=== PATIENT | male | born 1955 | race Caucasian/White ===

== ENCOUNTER 2016-10-14 15:32 | Emergency (ER) | payer SELFPAY ==
--- NOTE | ~2016-10-14 | CR72 ---
[facility] A Service of [facility] & [facility] RADIOLOGY TEXT RESULTS PATIENT: SELWYN BATEMAN JR LOCATION: [facility] : 53 UNIT #: [id number] AGE: [address]: Haim Tobin MD SEX: M ORDER DR: [id number] [facility] [address] [place], [place] [address] [id number] P MR#: [id number] Acc #: [id number] NAME: SELWYN BATEMAN : 1955 SEX: M STUDY DATE/TIME: 10/14/2016 16:11 UNIT: [facility] ROOM: STUDY DESCRIPTION: CR Chest Single View Portable Ordering Physician: Ed Abad Javier M.D. MEDICAL IMAGING REPORT This report is preliminary unless electronic signature is present EXAM Portable chest. HISTORY Shortness of breath and cough, onset today. COMPARISON Single view of the chest was obtained and compared with 12/19/2004. FINDINGS There is blunting of the right costophrenic angle consistent with chronic volume loss. The left lung is clear. Vascular markings are normal. The heart and mediastinum are unremarkable. IMPRESSION Volume loss at the right costophrenic angle, new since 2004, but probably chronic. The remaining lung suárez are clear. Dictated by... Haim Otto M.D. THIS IS AN ELECTRONICALLY VERIFIED REPORT Haim Otto M.D. at 10/15/2016 7:30 AM JYOTHI/peyton TD: 10/14/2016 17:59 JOB #: [id number] MEDICAL IMAGING REPORT Page 1 of 1 COPY
--- NOTE | ~2016-10-14 | EKG ---
PATIENT: SELWYN BATEMAN UNIT #: [id number] Ventricular Rate: 94 BPM Atrial Rate: 94 BPM P-R Interval: 158 ms QRS Duration: 102 ms Q-T Interval: 364 ms QTC Calculation(Bezet): 455 ms P [place]: 44 degrees Calculated R [place]: 45 degrees Calculated T [place]: 49 degrees Diagnosis Line: Normal sinus rhythm Diagnosis Line: Normal ECG Diagnosis Line: No previous ECGs available Diagnosis Line: Confirmed by ANN XIONG MD ([id number]) on Diagnosis Line: 10/15/2016 8:55:45 AM INTERPRETING MD: KOKI
[2016-10-14 16:50] LABS: BASOPHIL% 0.7 % (0-2.5); EOSINOPHIL# 0.2 X10e3 (0-0.7); EOSINOPHIL% 2.9 % (0.0-7.0); HEMOGLOBIN 10.4 gm/dL (13.0-16.0); LYMPHOCYTE# 1.5 X10e3 (1.0-3.5); LYMPHOCYTE% 21.3 % (17.0-45.0); MEAN CELL VOLUME 86.6 FL (83-96); MEAN CORPUSCULAR HEMOGLOBIN 27.3 PG (28-34); MEAN CORPUSCULAR HGB CONC 31.6 g/dL (30-36); MEAN PLATELET VOLUME 7.8 FL (6.5-11.5); MONOCYTE% 14.5 % (3.0-12.0); NEUTROPHIL# 4.3 X10e3 (1.5-7.1); NEUTROPHIL% 60.6 % (40-75); PLATELET COUNT 333 X10e3 (140-420); RED BLOOD COUNT 3.81 X10e (3.90-5.60); RED CELL DISTRIBUTION WIDTH 18.1 % (11.0-15.5); WHITE BLOOD COUNT 7.1 X10e3 (4.0-10.5)
[2016-10-14 16:51] LABS: DIFF IND NO
[2016-10-14 17:07] LABS: ALBUMIN SERUM 3.4 g/dL (3.5-5.0); BILIRUBIN, DIRECT 0.1 mg/dL (0.0-0.2); BILIRUBIN,INDIRECT 0.4 mg/dL (0.0-0.9); BILIRUBIN,TOTAL 0.5 mg/dL (0.2-2.0); BUN/CREATININE RATIO 20.76; CALCIUM SERUM 8.5 mg/dL (8.4-10.2); CREATININE SERUM 1.3 mg/dL (0.6-1.4); GLOM FILT RATE Estimated 58.9 mL/min (>60); PROTEIN TOTAL SERUM 6.9 g/dL (6.0-8.3)
[2016-10-14 19:32] LABS: URINE SOURCE CLEAN CATCH
[2016-10-14 19:42] LABS: URINE APPEARANCE CLEAR; URINE BILIRUBIN NEG (NEG); URINE BLOOD NEG (NEG); URINE COLOR YELLOW; URINE GLUCOSE NEG (NEG); URINE KETONE NEG (NEG); URINE LEUKOCYTE ESTERASE NEG (NEG); URINE NITRATE NEG (NEG); URINE PH 6.5 (5-8); URINE PROTEIN NEG (NEG); URINE SPECIFIC GRAVITY 1.009 (1.003-1.035); URINE UROBILINOGEN 0.2 MG/DL (NEG)
[2016-10-14 19:51] LABS: CULTURE INDICATED? NO
== END 2016-10-14 20:45 | disposition home or self-care (01) ==
LOC: CED 15:32
PROVIDERS: Emergency Medicine
DX: R41.82 Altered mental status, unspecified (principal); J18.9 Pneumonia, unspecified organism; I10 Essential (primary) hypertension; Z88.8 Allergy status to other drugs, medicaments and biological substances
CPT/HCPCS: 36415; 71010; 80048; 80076; 81003; 82947; 85025; 93005; 99285